=== PATIENT | female | born 1985 | race Caucasian/White ===

== ENCOUNTER 2016-11-18 17:29 | Emergency (ER) | payer OTHER ==
[2016-11-18] MEDS: LORAZEPAM 2 MG/ML SOL IV ONE (17:37)
[2016-11-18] MEDS: FOSPHENYTOIN 50 MG PE/ML SOL IV ONE (17:37)
[2016-11-18 17:41] VITALS: TEMP 98.5
[2016-11-18 17:57] LABS: BASOPHILS % (AUTO) 1 % (0-3); EOSINOPHILS % (AUTO) 0 % (0-9); HEMATOCRIT 39 % (35-47); MEAN CORPUSCULAR HGB CONC 34.4 gm/dl (32.0-36.0); MEAN CORPUSCULAR VOLUME 85 fL (81-99); MONOCYTES % (AUTO) 5.3 % (0-12); NEUTROPHILS % (AUTO) 67.4 % (37-80)
[2016-11-18 18:09] LABS: ALT 14 IU/L (14-63); CALCIUM 9.2 mg/dl (8.5-10.1); GLOM FILT RATE 81 mL/min (>60); POTASSIUM 4.2 mMol/L (3.5-5.1); SODIUM 139 mMol/L (136-145)
[2016-11-18] MEDS ORDERED: ONDANSETRON 4 MG ODT ONE (18:45)
[2016-11-18] MEDS: ONDANSETRON 4 MG ODT BU ONE (18:45)
[2016-11-18] MEDS ORDERED: FOSPHENYTOIN 50 MG PE/ML SOL ONE (19:19)
[2016-11-18 19:33] VITALS: RESP 20
[2016-11-18 19:34] VITALS: BP 124/80; PULSE 83; O2SAT 99
== END 2016-11-18 18:55 | DRG 101 ==
LOC: ED 17:29
DX: G40.909 Epilepsy, unspecified, not intractable, without status epilepticus (principal); R40.2142 Coma scale, eyes open, spontaneous, at arrival to emergency department
CPT/HCPCS: 80053; 80307; 85025; 96374; 99284; Q2009